=== PATIENT | male | born 1990 | race African-American/Black ===

== ENCOUNTER 2016-10-12 17:40 | Emergency (ER) | payer SELFPAY ==
[2016-10-12] MEDS ORDERED: HYDROcodone/Acetaminophen 10/325 mg Tablet ONE (18:28)
[2016-10-12] MEDS ORDERED: AMOXicillin 250 MG CAP ONE (18:31)
--- NOTE | 2016-10-12 18:52 | ERRECORD ---
[facility] EMERGENCY RECORD HPI TOOTHACHE (17:59 [facility]ME[facility]) CHIEF COMPLAINT: Patient presents for evaluation of toothache. HISTORIAN: History provided by patient. LOCATION: Symptoms are localized, most severe to l 1st molar. QUALITY: Pain is dull in nature, described as aching. TIME COURSE: Gradual onset of symptoms, 2, days priror to arrival. ASSOCIATED WITH: No associated chills, Associated with facial pain, No associated facial swelling, No associated fever. EXACERBATED BY: Patient's condition exacerbated by chewing. RELIEVED BY: Patient's condition relieved by over the counter medications. ROS (18:00 WMEI) CONSTITUTIONAL: Historian denies chills, denies fever. EYES: Historian denies eye pain, denies eye discharge. ENT: Historian denies rhinorrhea, denies sore throat. CARDIOVASCULAR: Historian denies chest pain, no radiation. RESPIRATORY: Historian denies cough, denies shortness of breath. GI: Historian denies nausea, denies vomiting. MUSCULOSKELETAL: Historian denies joint redness, denies joint stiffness. PSYCHIATRIC: Historian denies anxiety, denies depression, denies emotional lability. PAST MEDICAL HISTORY (17:47 [facility]) MEDICAL HISTORY: No past medical history,. MALE SURGICAL HISTORY: Patient has no surgical history. PSYCHIATRIC HISTORY: Anxiety. SOCIAL HISTORY: Patient has no smoking history, Patient denies alcohol use, Patient denies drug use. KNOWN ALLERGIES No Known Drug Allergies CURRENT MEDICATIONS (17:48 [facility]) None VITAL SIGNS (17:45 [facility]) VITAL SIGNS: BP: 106/73, Pulse: 115, Resp: 18, Temp: 98.0 (Oral), Pain: 10, O2 sat: 97 on Room Air, Time: 10/12/2016 17:45. PHYSICAL EXAM (18:24 [facility]MEI) CONSTITUTIONAL: Vital signs reviewed, Patient appears non toxic, Patient alert and oriented to person, place and time. HEAD: Head exam included findings of head atraumatic, normocephalic. EYES: Conjunctiva normal, Sclera normal. ENT: Ear exam normal, Nose exam normal, Pharynx exam normal, &a-1R&a+25V*p+0X*[id number]*c202B*c15G*c2P*p-0X&a-25V&a+1R Name: Bryan Christy DOB: 1990 M26 MedRec: [id number] AcctNum: [id number] Prepared: Angle Oct 13, 2016 06:09 by Interface Page 1 of 3 pMD [facility] EMERGENCY RECORD Teeth with, dental caries, l lower 1st molar. NECK: Neck exam included findings of normal range of motion, Trachea midline. RESPIRATORY CHEST: Breath sounds clear, Chest exam included findings of chest movement symmetrical. CARDIOVASCULAR: Cardiovascular exam included findings of heart rate regular rate and rhythm, Heart sounds normal. ABDOMEN MALE: Abdominal exam included findings of abdomen nontender, Liver normal, Spleen normal. UPPER EXTREMITY: Upper extremity exam included findings of inspection normal, Range of motion normal. LOWER EXTREMITY: Lower extremity exam included findings of inspection normal, Range of motion normal, Motor strength normal. NEURO: Hellier coma scale 15, Neuro exam findings include patient oriented to person, place and time, Speech normal, Gait normal. SKIN: Skin exam included findings of skin warm, dry, and normal in color. LYMPHATIC: Lymphatic exam normal. PSYCHIATRIC: Psychiatric exam included findings of patient oriented to person place and time, Normal affect, Judgment normal, Insight normal. MEDICATION ADMINISTRATION SUMMARY Drug Name: [place], Dose Ordered: 10 mg, Route: Oral, Status: Given, Time: 18:35 10/12/2016, Drug Name: *amoxicillin, Dose Ordered: 500 mg, Route: Oral, Status: Given, Time: 18:34 10/12/2016, *Additional information available in notes, Detailed record available in Medication Service section. PROBLEM LIST No recorded problems DIAGNOSIS (18:26 [facility]MEI) FINAL: PRIMARY: dental pain. PRESCRIPTION acetaminophen-codeine: TABLET : 300 mg-30 mg : ORAL : Quantity: 1 Unit: tab(s) Route: ORAL Schedule: every 4 hours prn Dispense: 15 Unit: tab(s) May substitute. Refills: No Refills . (18:22 [facility]) NOTES: No refills. (18:22 [facility]) amoxicillin: CAPSULE : 500 mg : ORAL : Quantity: 2 Unit: cap(s) Route: ORAL Schedule: 2 times a day Dispense: 30 Unit: cap(s) May substitute. Refills: No Refills . (18:22 [facility]I) NOTES: ^s=No refills No refills. (18:22 [facility]) ibuprofen: TABLET : 800 mg : ORAL : Quantity: 800 Unit: mg Route: ORAL Schedule: every 8 hours PRN Dispense: 30 Unit: &a-1R&a+25V*p+0X*n7461T*c202B*c15G*c2P*p-0X&a-25V&a+1R Name: Bryan Christy : 1990 M26 MedRec: [id number] AcctNum: [id number] Prepared: Angle Oct 13, 2016 06:09 by Interface Page 2 of 3 pMD [facility] EMERGENCY RECORD tab(s) May substitute. Refills: No Refills . (18:23 [facility]) NOTES: No refills. (18:23 [facility]) DISPOSITION PATIENT: Disposition Type: Discharge, Disposition: *Discharge Home. (18:26 [facility]) Patient left the department. (18:39 [facility]) Cesar: PAULINE=DAVID Shah Jamie WMEI=DO Malcolm William &a-1R&a+25V*p+0X*[id number]*c202B*c15G*c2P*p-0X&a-25V&a+1R Name: Bryan Christy : 1990 M26 MedRec: [id number] AcctNum: [id number] Prepared: Angle Oct 13, 2016 06:09 by Interface Page 3 of 3 pMD MTDD
--- NOTE | 2016-10-12 18:57 | PICIS ---
[facility] EMERGENCY RECORD TRIAGE ([facility] Oct 12, 2016 17:46 [facility]) TRIAGE NOTES: dental pain on the Lt side for 6 days. ([facility] Oct 12, 2016 17:46 [facility]) PATIENT: NAME: Bryan Christy, AGE: 26, GENDER: male, : Fri1990, TIME OF GREET: FriOct 12, 2016 17:42, PREFERRED LANGUAGE: Salvadorean, ETHNICITY: Not or , ECODE BILLING MAP: [facility], SSN: [id number], Zip Code: [address], KG WEIGHT: [phone], PHONE: , , , PERSON ID: [id number], PAYMENT: [employer] Self Pay, PCP: Gracy SILVER KRISTI. ([facility] Oct 12, 2016 17:46 [facility]) COMPLAINT: dental pain. (17:49 [facility]) ADMISSION: URGENCY: 4 Non Urgent, ADMISSION SOURCE: Home, TRANSPORT: Walk-in, BED: ER -03. ([facility] Oct 12, 2016 17:46 [facility]) IMMUNIZATIONS: Flu vaccine not up to date, Tetanus immunization up to date, Pneumococcal vaccine not up to date. (17:47 [facility]) SIRS SCORING: Heart Rate 110-139 (2), Temp range 96.8-101.1 (0), respiratory rate 12-24 (0), Mental Status altered: no (0), Total SIRS Score 2, Infection or Suspected Infection: No. (17:47 [facility]) TRIAGE SCREENING: Patient denies suicidal ideation, Patient denies presence of domestic violence. (17:47 [facility]) PROVIDERS: TRIAGE NURSE: Michael Shah RN. ([facility] Oct 12, 2016 17:46 [facility]) VITAL SIGNS: BP 106/73, Pulse 115, Resp 18, Temp 98.0, (Oral), Pain 10, O2 Sat 97, on Room Air, Time 10/12/2016 17:45. (17:45 [facility]) PREVIOUS VISIT ALLERGIES: No Known Drug Allergies. ([facility] Oct 12, 2016 17:46 [facility]) No Known Drug Allergies. (17:47 [facility]) KNOWN ALLERGIES No Known Drug Allergies CURRENT MEDICATIONS (17:48 [facility]) None VITAL SIGNS (17:45 [facility]) VITAL SIGNS: BP: 106/73, Pulse: 115, Resp: 18, Temp: 98.0 (Oral), Pain: 10, O2 sat: 97 on Room Air, Time: 10/12/2016 17:45. NURSING ASSESSMENT: DENTAL (17:49 [facility]) CONSTITUTIONAL: Complex assessment performed, Patient arrives ambulatory, Gait steady, History obtained from patient, Patient appears comfortable, Patient cooperative, Patient alert, Oriented to person, place and time, Skin warm, Skin dry, Skin normal in color, Mucous membranes pink, Mucous membranes moist, Patient is well-groomed, Patient complains of dental pain, dental pain on the Lt side for 6 days. DENTAL: Dental assessment findings include mouth normal, Teeth abnormal:, avulsed secondary tooth (teeth), &a-1R&a+25V*p+0X*y6605E*c202B*c15G*c2P*p-0X&a-25V&a+1R Name: Bryan Christy : 1990 M26 MedRec: [id number] AcctNum: [id number] Prepared: Angle Oct 13, 2016 06:15 by Interface Page 1 of 5 pMD [facility] EMERGENCY RECORD gums red. SAFETY: Side rails up, Cart/Stretcher in lowest position, Call light within reach, Hospital ID band on. NURSING PROCEDURE: DISCHARGE NOTE (18:36 [facility]) DISCHARGE: Patient discharged to home, ambulating without assistance, family driving, accompanied by //partner, Summary of Care printed/ provided, Transition record given to patient, Discharge instructions given to patient, Discharge instructions given to significant other, Prescriptions given and instructions on side effects given, Above person(s) verbalized understanding of discharge instructions and follow-up care, Patient treated and evaluated by physician, Notes: Pt instructed to follow up with PCP or dental specialist as soon as possible. Opportunity for questions given. Ride at bedside and signed discharge paperwork. BELONGINGS: Belongings and valuables with patient at time of discharge include:, Belongings remain with patient, Valuables remain with patient. SAFETY: Side rails up, Cart/Stretcher in lowest position, Family at bedside, Call light within reach, Hospital ID band on. MEDICATION ADMINISTRATION SUMMARY Drug Name: [place], Dose Ordered: 10 mg, Route: Oral, Status: Given, Time: 18:35 10/12/2016, Drug Name: *amoxicillin, Dose Ordered: 500 mg, Route: Oral, Status: Given, Time: 18:34 10/12/2016, *Additional information available in notes, Detailed record available in Medication Service section. MEDICATION SERVICE amoxicillin: Order: amoxicillin (amoxicillin trihydrate) - Dose: 500 mg : Oral Schedule: Now Notes: Verbal Order Ordered by: Ryan Malcolm DO Entered by: Michael Shah RN Sat Oct 12, 2016 18:30 Documented as given by: Michael Shah RN Sat Oct 12, 2016 18:34 Patient, Medication, Dose, Route and Time verified prior to administration. Amount given: 500 mg, Site: Medication administered P.O., Correct patient, time, route, dose and medication confirmed prior to administration, Patient advised of actions and side-effects prior to administration, Allergies confirmed and medications reviewed prior to administration, Patient in position of comfort, Side rails up, Cart in lowest position, Family at bedside, Call light in reach. [place]: Order: [place] (hydrocodone bitartrate/acetaminophen) - Dose: 10 mg : Oral Schedule: Now Ordered by: Ryan Malcolm DO &a-1R&a+25V*p+0X*i2308O*c202B*c15G*c2P*p-0X&a-25V&a+1R Name: Bryan Christy : 1990 M26 MedRec: [id number] AcctNum: [id number] Prepared: Angle Oct 13, 2016 06:15 by Interface Page 2 of 5 pMD [facility] EMERGENCY RECORD Entered by: Ryan Malcolm DO [facility] Oct 12, 2016 18:21 , Acknowledged by: Michael Shah RN Sat Oct 12, 2016 18:22 Documented as given by: Michael Shah RN [facility] Oct 12, 2016 18:35 Patient, Medication, Dose, Route and Time verified prior to administration. Amount given: 10/325 mg, Site: Medication administered P.O., Correct patient, time, route, dose and medication confirmed prior to administration, Patient advised of actions and side-effects prior to administration, Allergies confirmed and medications reviewed prior to administration, Patient in position of comfort, Side rails up, Cart in lowest position, Family at bedside, Call light in reach. HPI TOOTHACHE (17:59 WMEI) CHIEF COMPLAINT: Patient presents for evaluation of toothache. HISTORIAN: History provided by patient. LOCATION: Symptoms are localized, most severe to l 1st molar. QUALITY: Pain is dull in nature, described as aching. TIME COURSE: Gradual onset of symptoms, 2, days priror to arrival. ASSOCIATED WITH: No associated chills, Associated with facial pain, No associated facial swelling, No associated fever. EXACERBATED BY: Patient's condition exacerbated by chewing. RELIEVED BY: Patient's condition relieved by over the counter medications. ROS (18:00 [facility]) CONSTITUTIONAL: Historian denies chills, denies fever. EYES: Historian denies eye pain, denies eye discharge. ENT: Historian denies rhinorrhea, denies sore throat. CARDIOVASCULAR: Historian denies chest pain, no radiation. RESPIRATORY: Historian denies cough, denies shortness of breath. GI: Historian denies nausea, denies vomiting. MUSCULOSKELETAL: Historian denies joint redness, denies joint stiffness. PSYCHIATRIC: Historian denies anxiety, denies depression, denies emotional lability. PAST MEDICAL HISTORY (17:47 [facility]) MEDICAL HISTORY: No past medical history,. MALE SURGICAL HISTORY: Patient has no surgical history. PSYCHIATRIC HISTORY: Anxiety. SOCIAL HISTORY: Patient has no smoking history, Patient denies alcohol use, Patient denies drug use. PHYSICAL EXAM (18:24 [facility]) CONSTITUTIONAL: Vital signs reviewed, Patient appears non toxic, Patient alert and oriented to person, place and time. HEAD: Head exam included findings of head atraumatic, normocephalic. &a-1R&a+25V*p+0X*l9511A*c202B*c15G*c2P*p-0X&a-25V&a+1R Name: Bryan Christy : 1990 M26 MedRec: [id number] AcctNum: [id number] Prepared: Angle Oct 13, 2016 06:15 by Interface Page 3 of 5 pMD [facility] EMERGENCY RECORD EYES: Conjunctiva normal, Sclera normal. ENT: Ear exam normal, Nose exam normal, Pharynx exam normal, Teeth with, dental caries, l lower 1st molar. NECK: Neck exam included findings of normal range of motion, Trachea midline. RESPIRATORY CHEST: Breath sounds clear, Chest exam included findings of chest movement symmetrical. CARDIOVASCULAR: Cardiovascular exam included findings of heart rate regular rate and rhythm, Heart sounds normal. ABDOMEN MALE: Abdominal exam included findings of abdomen nontender, Liver normal, Spleen normal. UPPER EXTREMITY: Upper extremity exam included findings of inspection normal, Range of motion normal. LOWER EXTREMITY: Lower extremity exam included findings of inspection normal, Range of motion normal, Motor strength normal. NEURO: Chinedu coma scale 15, Neuro exam findings include patient oriented to person, place and time, Speech normal, Gait normal. SKIN: Skin exam included findings of skin warm, dry, and normal in color. LYMPHATIC: Lymphatic exam normal. PSYCHIATRIC: Psychiatric exam included findings of patient oriented to person place and time, Normal affect, Judgment normal, Insight normal. EVENTS TRANSFER: Triage to Emergency Emergency Room -03. (Sat Oct 12, 2016 17:46 [facility]) Removed from Emergency Emergency Room -03. (18:39 [facility]) PROBLEM LIST No recorded problems DIAGNOSIS (18:26 [facility]) FINAL: PRIMARY: dental pain. DISPOSITION PATIENT: Disposition Type: Discharge, Disposition: *Discharge Home. (18:26 [facility]MEI) Patient left the department. (18:39 [facility]) INSTRUCTION (18:26 [facility]) DISCHARGE: DENTAL PAIN. FOLLOWUP: Gracy SILVER KRISTI, [facility], [facility] [id number], [id number]. SPECIAL: Follow-up with your PCP/DENTIST. PRESCRIPTION acetaminophen-codeine: TABLET : 300 mg-30 mg : ORAL : Quantity: 1 Unit: tab(s) Route: ORAL Schedule: every 4 hours prn Dispense: 15 Unit: tab(s) &a-1R&a+25V*p+0X*j8963G*c202B*c15G*c2P*p-0X&a-25V&a+1R Name: Bryan Christy : 1990 M26 MedRec: [id number] AcctNum: [id number] Prepared: Angle Oct 13, 2016 06:15 by Interface Page 4 of 5 pMD [facility] EMERGENCY RECORD May substitute. Refills: No Refills . (18:22 [facility]) NOTES: No refills. (18:22 [facility]) amoxicillin: CAPSULE : 500 mg : ORAL : Quantity: 2 Unit: cap(s) Route: ORAL Schedule: 2 times a day Dispense: 30 Unit: cap(s) May substitute. Refills: No Refills . (18:22 [facility]) NOTES: ^s=No refills No refills. (18:22 [facility]) ibuprofen: TABLET : 800 mg : ORAL : Quantity: 800 Unit: mg Route: ORAL Schedule: every 8 hours PRN Dispense: 30 Unit: tab(s) May substitute. Refills: No Refills . (18:23 [facility]) NOTES: No refills. (18:23 [facility]) IMAGING *SUPPLY CHARGE SHEET: Image captured from scanner. (19:00 [facility]) *DISCHARGE INSTRUCTIONS RECEIPT: Image captured from scanner. (19:01 [facility]) ADMIN ([place] Oct 13, 2016 06:04 [facility]) DIGITAL SIGNATURE: DO Malcolm William. Cesar: [facility]=DAVID Shah, Michael EI=DO Malcolm William &a-1R&a+25V*p+0X*v1575H*c202B*c15G*c2P*p-0X&a-25V&a+1R Name: Bryan Christy : 1990 M26 MedRec: [id number] AcctNum: [id number] Prepared: Angle Oct 13, 2016 06:15 by Interface Page 5 of 5 pMD MTDD
== END 2016-10-12 18:36 | disposition home or self-care (01) ==
LOC: BURERS 17:40
DX: K08.89 Other specified disorders of teeth and supporting structures (principal)
CPT/HCPCS: 99282

== ENCOUNTER 2016-11-28 09:32 | Emergency (ER) | payer SELFPAY | END 2016-11-28 10:02 | disposition home or self-care (01) | LOC: BURERS 09:32 | DX: J30.1 Allergic rhinitis due to pollen (principal); F41.9 Anxiety disorder, unspecified | CPT/HCPCS: 99283 ==

== ENCOUNTER 2017-01-24 22:16 | Emergency (ER) | payer SELFPAY ==
[2017-01-24] MEDS ORDERED: AMOXicillin 250 MG CAP ONE (23:25)
[2017-01-24] MEDS ORDERED: HYDROcodone/Acetaminophen 10/325 mg Tablet ONE (23:25)
== END 2017-01-24 23:27 | disposition home or self-care (01) ==
LOC: BURERS 22:16
DX: K02.9 Dental caries, unspecified (principal); Z79.899 Other long term (current) drug therapy
CPT/HCPCS: 99282

== ENCOUNTER 2017-09-29 11:17 | Emergency (ER) | payer SELFPAY | END 2017-09-29 11:34 | disposition home or self-care (01) | LOC: BURERS 11:17 | DX: J06.9 Acute upper respiratory infection, unspecified (principal); F41.9 Anxiety disorder, unspecified | CPT/HCPCS: 99283 ==

== ENCOUNTER 2017-10-28 10:31 | Emergency (ER) | payer SELFPAY ==
[2017-10-28] MEDS ORDERED: Sulfameth/Trimethoprim DS 800-160mg TAB ONE (10:51)
== END 2017-10-28 10:55 | disposition home or self-care (01) ==
LOC: BURERS 10:31
DX: J01.90 Acute sinusitis, unspecified (principal)
CPT/HCPCS: 99283

== ENCOUNTER 2018-01-25 16:29 | Emergency (ER) | payer SELFPAY | END 2018-01-25 17:07 | disposition home or self-care (01) | LOC: BURERS 16:29 | DX: S71.112A Laceration without foreign body, left thigh, initial encounter (principal); F41.9 Anxiety disorder, unspecified; X58.XXXA Exposure to other specified factors, initial encounter | CPT/HCPCS: 99283 ==

== ENCOUNTER 2019-04-12 14:01 | Emergency (ER) | payer SELFPAY | END 2019-04-12 14:45 | disposition home or self-care (01) | LOC: BURERS 14:01 | DX: F41.9 Anxiety disorder, unspecified (principal); Z76.0 Encounter for issue of repeat prescription; Z79.899 Other long term (current) drug therapy | CPT/HCPCS: 99283 ==

== ENCOUNTER 2019-08-27 22:33 | Emergency (ER) | payer SELFPAY ==
[2019-08-27 23:19] LABS: Hemoglobin 14.2 g/dL (14.0-18.0); Mean Corpuscular HGB CONC 32.3 g/dL (32.0-36.0); Mean Corpuscular Volume 89.8 fL (78.0-98.0); Mean Platelet Volume 8.1 fL (7.4-10.4); Platelet Count 304 thou/uL (130-400); RBC Distribution Width 12.2 % (11.5-14.5); Red Blood Cell (RBC) Count 4.91 mill/uL (4.70-6.10); White Blood Cell (WBC) Count 9.3 thou/uL (4.8-10.8)
[2019-08-27 23:23] LABS: ALT (SGPT) 31 U/L (8-55); AST (SGOT) 25 U/L (5-34); Albumin 4.5 g/dL (3.5-5.0); Alkaline Phosphatase 85 U/L (40-110); Anion Gap 15 mmol/L (10-20); BUN (Urea Nitrogen) 12 mg/dL (8.9-20.6); Bilirubin, Total 0.2 mg/dL (0.2-1.2); Calc. Creatinine Clearance 0 mL/min (70-130); Carbon Dioxide 25 mmol/L (22-29); Chloride 104 mmol/L (98-107); Estimated GFR-MDRD 90; Globulin 2.9 g/dL (2.4-3.5); Glucose 108 mg/dL (70-105); Potassium 3.8 mmol/L (3.5-5.1); Protein, Total 7.4 g/dL (6.0-8.3); Sodium 140 mmol/L (136-145)
[2019-08-27] MEDS ORDERED: hydrOXYzine 25 MG TAB ONE (23:35)
[2019-08-27] MEDS ORDERED: Ibuprofen 800 MG TAB ONE (23:35)
[2019-08-27 23:36] LABS: Eosinophils 2 % (0-10); Lymphocytes 51 % (21-51); MDiff Complete? YES; Monocytes 7 % (0-10); Neutrophil 30 % (42-75); Platelet Morphology Comment Appears Adequate; RBC Morphology Normal; Reactive Lymphocytes 10 % (0-10)
--- NOTE | 2019-08-28 00:04 | RAD ---
PORTABLE CHEST: 08/27/19 An AP portable film at 2248 shows a normal sized heart and clear lungs. No infiltrate or effusion wa s seen. There is no vascular congestion or edema. IMPRESSION: No acute thoracic finding. POS: HOME
== END 2019-08-27 23:44 | disposition home or self-care (01) ==
LOC: BURERS 22:33
DX: R07.89 Other chest pain (principal); F41.9 Anxiety disorder, unspecified; Z79.899 Other long term (current) drug therapy
CPT/HCPCS: 71045; 80053; 83880; 84484; 85025; 85379; 93005; 94760

== ENCOUNTER 2019-09-03 14:08 | Emergency (ER) | payer SELFPAY | END 2019-09-03 14:45 | disposition home or self-care (01) | LOC: BURERS 14:08 | DX: F41.9 Anxiety disorder, unspecified (principal); Z76.0 Encounter for issue of repeat prescription; Z79.899 Other long term (current) drug therapy | CPT/HCPCS: 99283 ==